=== PATIENT | male | born 2000 | race Caucasian/White ===

== ENCOUNTER 2022-05-14 10:12 | Emergency (ER) | payer BC, SELFPAY ==
[2022-05-14 11:20] VITALS: BP 109/76; PULSE 78; RESP 18; TEMP 36.6; O2SAT 99; BMI 19.5
[2022-05-14 11:37] LABS: UTC Strep Screen (Rapid) Negative (Negative)
--- NOTE | 2022-05-14 11:37 | EXP.UTC ---
Discharge Plan Referrals Follow up/Referrals: Provider,Referral, MD [Primary Care Provider] - See instructions Activity Restrictions/Add. Instructions Additional Instructions/Restrictions: covid/flu swab was sent to lab, call later today for results. self isolate until test results are known to be negative No sign of a bacterial infection. Likely viral. Viruses can take 7-14 days to run their course. Nasal saline and bulb syringe or nose Angela to remove nasal drainage to help with nasal congestion. Hard to eat, drink, sleep with nasal congestion so important to keep this cleaned out. Monitor temp. Tylenol or Motrin as needed for pain or fever Encourage fluids, water, Gatorade, Powerade, Pedialyte if /toddler/child Warm salt water gargles Warm fluids Sore throat lozenges Sleep elevated Humidifier/vaporizer Follow-up immediately for new or worsening symptoms or no noticeable improvement over the next 48-72 hours. Clinical Impressions Clinical Impression: Upper respiratory infection, viral Instructions Patient Instructions: DI for Viral Upper Respiratory Infection -- Adult Discharge ED [facility] General Stated complaint: sore throat Time Seen by Provider: 05/14/22 11:37 HEENT Symptoms (Recalled from RN notes): Yes History of Present Illness Provider Complaint: 21 yr old male presents for sore throat [facility] Disclaimer: The information contained in this section may have been updated after the patient was seen, as this information can be updated by other users. Social History , [employer]) Smoking Status: Never smoker alcohol intake: never current occupational status: employed Travel in the last 8 weeks: None ROS Obtained: Yes All systems reviewed & no additional complaints except as documented Constitutional Constitutional: Reports system reviewed and no additional complaints, except as documented and Reports as per HPI Eyes Eyes: Reports system reviewed and no additional complaints, except as documented and Reports as per HPI ENT Ears, Nose, Mouth, and Throat: Reports system reviewed and no additional complaints, except as documented, Reports as per HPI and Reports sore throat Cardiovascular Cardiovascular: Reports system reviewed and no additional complaints, except as documented Respiratory Respiratory: Reports system reviewed and no additional complaints, except as documented Gastrointestinal Gastrointestingal: Reports system reviewed and no additional complaints, except as documented Musculoskeletal Musculoskeletal: Reports system reviewed and no additional complaints, except as documented Integumentary/Breasts Skin/Breast: Reports system reviewed and no additional complaints, except as documented Neurologic Neurologic: Reports system reviewed and no additional complaints, except as documented Endocrine Endocrine: Reports system reviewed and no additional complaints, except as documented Hematologic/Lymphatic Henatologic/Lymphatic: Reports system reviewed and no additional complaints, except as documented Allergic/Immunologic Allergic/Immunologic: Reports system reviewed and no additional complaints, except as documented Physical Exam General General appearance: alert and in no apparent distress Head Head exam: atraumatic, normocephalic and normal inspection Eye Eye exam: Present normal appearance and PERRL ENT ENT exam: Present mucous membranes moist, TM's normal bilaterally and normal external ear exam Expanded ENT Exam Comment: pharynx red Neck Neck exam: Present normal inspection, full ROM and trachea midline; Absent meningismus or lymphadenopathy Respiratory Respiratory exam: Present normal lung sounds bilaterally; Absent respiratory distress Cardiovascular Cardiovascular exam: Present regular rate and normal rhythm; Absent JVD Extremities Exam Extremities exam: Present normal inspection, full ROM and normal cap
[2022-05-14 11:46] VITALS: BP 109/76; PULSE 78; RESP 18; TEMP 36.6; O2SAT 99
== END 2022-05-14 11:47 | disposition home or self-care (01) ==
PROVIDERS: Emergency Provider Nurse Practitioner Family
DX: J06.9 Acute upper respiratory infection, unspecified (principal)
CPT/HCPCS: 87880; 99212; G0463

== ENCOUNTER 2023-02-22 18:17 | Emergency (ER) | payer BC, SELFPAY ==
[2023-02-22 18:19] VITALS: BP 106/67; PULSE 63; RESP 18; TEMP 36.8; O2SAT 99; BMI 20.2
--- NOTE | 2023-02-22 18:52 | CT_ITS ---
PROCEDURE INFORMATION: Exam: CT Head Without Contrast Exam date and time: 02/22/2023 7:30 PM Age: 22 years old Clinical indication: Pain; Headache; Additional info: Cough induced severe BROWN TECHNIQUE: Imaging protocol: Computed tomography of the head without contrast. Radiation optimization: All CT scans at this facility use at least one of these dose optimization techniques: automated exposure control; mA and/or kV adjustment per patient size (includes targeted exams where dose is matched to clinical indication); or iterative reconstruction. REPORTING DATA: Count of CT and Cardiac NM exams in prior 12 months: This patient has received 0 known CTs and 0 known cardiac nuclear medicine studies in the 12 months prior to the current study. COMPARISON: No relevant prior studies available. FINDINGS: Brain: Normal. No hemorrhage. Unremarkable white matter. No mass effect. Cerebral ventricles: No ventriculomegaly. Paranasal sinuses: Bilateral maxillary sinus mucous retention cysts. Mastoid air cells: Visualized mastoid air cells are well aerated. Bones/joints: Unremarkable. No acute fracture. Soft tissues: Unremarkable. IMPRESSION: No acute intracranial findings.
--- NOTE | 2023-02-22 18:52 | CT_ITS ---
PROCEDURE INFORMATION: Exam: CT Cervical Spine Without Contrast Exam date and time: 02/22/2023 7:35 PM Age: 22 years old Clinical indication: Neck pain; Additional info: Cough, severe BROWN, limited rom TECHNIQUE: Imaging protocol: Computed tomography of the cervical spine without contrast. Radiation optimization: All CT scans at this facility use at least one of these dose optimization techniques: automated exposure control; mA and/or kV adjustment per patient size (includes targeted exams where dose is matched to clinical indication); or iterative reconstruction. REPORTING DATA: Count of CT and Cardiac NM exams in prior 12 months: This patient has received 0 known CTs and 0 known cardiac nuclear medicine studies in the 12 months prior to the current study. COMPARISON: CT HEAD/BRAIN WO CON 02/22/2023 7:30 PM FINDINGS: Bones/joints: Cervical vertebrae normal in height. Right lateral tilt. Mild reversal of normal cervical lordosis centered C3-C4. Maintained craniocervical junction. Preserved intervertebral disc heights. No significant neural foraminal narrowing or spinal canal stenosis. Lungs: Lung apices are normal. Soft tissues: Unremarkable. IMPRESSION: No acute osseous findings.
--- NOTE | 2023-02-22 18:54 | HMH.EDGENADL ---
Discharge Plan Disposition Patient Disposition: Eloped Chief Complaint: Back Pain/Injury Prescriptions Prescriptions: No Action multivitamin Tablet 1 tab PO DAILY ondansetron HCl 4 mg tablet 4 mg PO Q8H PRN (Reason: nausea and vomiting) Qty: 14 0RF loperamide 2 mg capsule 2 mg PO Q6H PRN (Reason: loose stool) Qty: 7 0RF Referrals Follow up/Referrals: Provider,Referral, MD [Primary Care Provider] - See instructions Clinical Impressions Clinical Impression: Neck pain Instructions Patient Instructions: DI for Low Back Pain Discharge ED Provider: Saturnino Hunt General Adult HPI General Chief complaint: Back Pain/Injury Stated complaint: nesk pain Time Seen by Provider: 02/22/23 18:41 Mode of Arrival: Ambulatory Source of Information: Patient Limitations: No Limitations Description of Symptoms (Recalled from ER Triage Doc. by RN): PT WITH C/O PAIN IN SPINE AND NECK PAIN. PT SITTING LAST NIGHT PLAYING A VIDEO GAME, COUGHED AND HAS PAIN SINCE History of Present Illness HPI narrative: Patient is a 22-year-old male who presents emergency department for evaluation of neck pain and headache. Patient states that he had a brief episode of coughing last night that caused severe bilateral and midline cervical neck pain radiating up into his head with associated headache. No extremity complaints, no lower back complaints. Patient has had limited range of motion in his neck since coughing and he is concerned causing him to present here for continued evaluation. Related Data Home Medications Medication Instructions Recorded Confirmed multivitamin 1 tab PO DAILY 07/31/22 09/27/22 Previous Rx's Medication Instructions Recorded loperamide 2 mg capsule 2 mg PO Q6H PRN loose stool #7 caps 09/27/22 ondansetron HCl 4 mg tablet 4 mg PO Q8H PRN nausea and 09/27/22 vomiting #14 tabs Allergies Allergy/AdvReac Type Severity Reaction Status Date / Time No Known Allergies Allergy Verified 09/27/22 15:33 [facility] Disclaimer: The information contained in this section may have been updated after the patient was seen, as this information can be updated by other users. Medical History (Updated 02/22/23 @ 21:01 by Flora Arellano RN) Upper respiratory infection, viral Social History Smoking Status: Current every day smoker alcohol intake: never current occupational status: employed Travel in the last 8 weeks: None ROS Obtained: Yes Systems reviewed as appropriate & no additional complaints except as documented Physical Exam General General appearance: alert and in no apparent distress Head Head exam: atraumatic and normocephalic Eye Eye exam: Present PERRL and EOMI ENT ENT exam: Present mucous membranes moist Neck Neck exam: Present normal inspection; Absent full ROM (Limited range of motion in all directions secondary to pain. Midline tenderness and bilateral paraspinal tenderness.) Chest Chest inspection: Present normal inspection and symmetric chest wall rise Respiratory Respiratory exam: Present normal lung sounds bilaterally; Absent respiratory distress Cardiovascular Cardiovascular exam: Present regular rate and normal rhythm Abdominal Exam Abdominal exam: Present soft Extremities Exam Extremities exam: Present normal inspection Neurological Exam Neurological exam: Present alert and CN II-XII intact; Absent motor sensory deficit Psychiatric Psychiatric exam: Present normal affect Skin Skin exam: Present warm and dry Medical Decision Making Conner Inquiry Pt receiving controlled substance: No Vital Signs: 02/22/23 18:19 02/22/23 19:00 02/22/23 21:00 Temperature 98.3 F 97.7 F Temperature Source Oral Oral Pulse Rate 67 65 Pulse Rate [Radial] 63 Respiratory Rate 18 16 Blood Pressure 113/59 L 130/70 Blood Pressure [Left Arm] 106/67 L Blood Pressure Mean [Left Arm] 80 Blood Pressure Sourc
--- NOTE | 2023-02-22 18:56 | XR_ITS ---
PROCEDURE INFORMATION: Exam: XR Chest Exam date and time: 02/22/2023 7:54 PM Age: 22 years old Clinical indication: Cough; Additional info: Cough, neck pain TECHNIQUE: Imaging protocol: Radiologic exam of the chest. Views: 1 view. COMPARISON: CT CERVICAL SPINE WO CON 02/22/2023 7:35 PM FINDINGS: Lungs: Hazy left midlung opacity. Lungs are otherwise clear. Pleural spaces: No pleural effusion. No pneumothorax. Heart/Mediastinum: Cardiomediastinal silhouette is normal. Bones/joints: No acute abnormality. IMPRESSION: Hazy left midlung opacity suggesting infectious/inflammatory process.
[2023-02-22 19:00] VITALS: BP 113/59; PULSE 67; O2SAT 96
--- NOTE | 2023-02-22 19:19 | PC.NURSE ---
PT REFUSED IV DR ESTRADA AWARE ORDERS CHANGED TO WITHOUT CONTRAST RADIOLOGY AWARE
--- NOTE | 2023-02-22 19:21 | PC.NURSE ---
Pt refuses IV for contrast, CT will be performed without contrast and PO meds.
--- NOTE | 2023-02-22 20:57 | PC.NURSE ---
PT WALKED OUT OF ER DID NOT TELL ANYONE HE WAS LEAVING , PT DID NOT HAVE AN IV
[2023-02-22 21:00] VITALS: BP 130/70; PULSE 65; RESP 16; TEMP 36.5; O2SAT 98
== END 2023-02-22 21:01 | disposition left against medical advice (07) ==
LOC: ER 18:29
PROVIDERS: Emergency Provider Emergency Medicine
DX: R51.9 Headache, unspecified (principal); M54.2 Cervicalgia; F17.200 Nicotine dependence, unspecified, uncomplicated
CPT/HCPCS: 70450; 71045; 72125; 96374; 99285

== ENCOUNTER 2023-07-19 11:16 | Emergency (ER) | payer BC, SELFPAY ==
[2023-07-19 11:17] VITALS: BP 117/63; PULSE 80; RESP 18; TEMP 36.7; O2SAT 99; BMI 20.3
[2023-07-19 11:37] VITALS: BMI 20.3
--- NOTE | 2023-07-19 11:44 | ED_ITS ---
Discharge Plan Disposition Patient Disposition: Home, Self-Care Condition: Good Prescriptions Prescriptions: New ibuprofen [IBU] 800 mg tablet 800 mg PO Q8HP PRN (Reason: Moderate Pain) Qty: 30 0RF uoiibrfzqafocvl-tcfzurfet-MA [Bromfed DM] 2-30-10 mg/5 mL Syrup 5 ml PO Q6H PRN (Reason: Cough) Qty: 240 0RF ondansetron 4 mg Tablet,Disintegrating 4 mg PO Q8H PRN (Reason: Nausea) Qty: 12 0RF No Action loperamide 2 mg capsule 2 mg PO Q6H PRN (Reason: loose stool) Qty: 14 0RF Referrals Follow up/Referrals: Cyndee Damian APRN [Primary Care Provider] - See instructions Activity Restrictions/Add. Instructions Additional Instructions/Restrictions: Drink plenty of fluids. Take tylenol or ibuprofen for pain or fever. Take the medications as directed. Follow up with your regular doctor. GO TO THE ER FOR ANY WORSENING SYMPTOMS Clinical Impressions Clinical Impression: Acute viral syndrome Stand Alone Forms Stand Alone Forms: Work/School Release Instructions Patient Instructions: DI for Viral Syndrome, Ondansetron, Ibuprofen Discharge ED Provider: Tariq Minaya [facility] General Stated complaint: runny nose, cough, needs covid test for work Mode of Arrival: Ambulatory Source of Information: Patient Limitations: No Limitations Time Seen by Provider: 07/19/23 11:43 Description of Symptoms (Recalled from Triage Doc. by RN): Pt's symptoms are sore throat, chill, body aches, and chills. HEENT Symptoms (Recalled from RN notes): Yes Resp Symptoms (Recalled from RN notes): No Skin Symptoms (Recalled from RN notes): No MS Symptoms (Recalled from RN notes): No Functional Status (Recalled from RN notes): n/a History of Present Illness Provider Complaint: He states that for the past 2 days he has had fever, chills, body aches, malaise, dry cough, and nausea. Related Data Previous Rx's Medication Instructions Recorded loperamide 2 mg capsule 2 mg PO Q6H PRN loose stool #14 05/08/23 caps edoavtsnagrulay-mxusyktnbpppemn-YQ 5 ml PO Q6H PRN Cough #240 mL 02/15/24 2 mg-30 mg-10 mg/5 mL oral syrup (Bromfed DM) ibuprofen 800 mg tablet (IBU) 800 mg PO Q8HP PRN Moderate Pain 07/19/23 #30 tabs ondansetron 4 mg disintegrating 4 mg PO Q8H PRN Nausea #12 tabs 07/19/23 tablet Allergies Allergy/AdvReac Type Severity Reaction Status Date / Time No Known Allergies Allergy Verified 07/19/23 11:40 Worker's Comp Is this a Worker's Comp case?: No [facility] Disclaimer: The information contained in this section may have been updated after the patient was seen, as this information can be updated by other users. Medical History Upper respiratory infection, viral Surgical History No significant past surgical history Family History Mother Cancer Hypertension Grandfather Cancer Other No significant family history Social History Smoking Status: Former smoker alcohol intake: former substance use type: former substance user and marijuana current occupational status: employed Travel in the last 8 weeks: None adopted: No caregiver/support person: No foster care: No lives independently: Yes marital status: life partner ROS Obtained: Yes All systems reviewed & no additional complaints except as documented Constitutional Constitutional: Reports chills and Reports fever(s) Eyes Eyes: Denies eye discharge ENT Ears, Nose, Mouth, and Throat: Reports as per HPI Cardiovascular Cardiovascular: Denies chest pain Respiratory Respiratory: Denies chest congestion and Reports cough Gastrointestinal Gastrointestingal: Reports nausea; Denies abdominal pain, constipation, cramping, diarrhea or vomiting Musculoskeletal Musculoskeletal: Denies arthralgias Integumentary/Breasts Skin/Breast: Denies rash Neurologic Neurologic: Denies paresthesias Physical Exam General General appearance: alert and in no apparent distress Eye Eye exam: Present normal appearance, PERRL and EOMI ENT ENT exam: Present mucous membranes moist and normal external ear exam Expanded ENT Exam External ear exam: Present normal external inspection TM/Canal exam: Bilateral TM: erythema and bulging Nose exam: Absent sinus tenderness Nasal speculum exam: Bilateral: normal Mouth exam: Present normal external inspection; Absent drooling Teeth exam: Present normal inspection Throat exam: Present tonsillar erythema and tonsillomegaly Neck Neck exam: Present normal inspection, full ROM and trachea midline; Absent tenderness, lymphadenopathy or thyromegaly Chest Chest inspection: Present normal inspection and symmetric chest wall rise; Absent tenderness or rash Respiratory Respiratory exam: Present normal lung sounds bilaterally; Absent respiratory distress, wheezes, stridor or accessory muscle use Cardiovascular Cardiovascular exam: Present regular rate, normal rhythm and normal heart sounds Abdominal Exam Abdominal exam: Present soft; Absent distention, tenderness, guarding, rebound or rigidity Extremities Exam Extremities exam: Present normal inspection, full ROM and normal capillary refill; Absent tenderness or calf tenderness Back Exam Back exam: Present normal inspection and full ROM; Absent tenderness Neurological Exam Neurological exam: Present alert and oriented X3 Psychiatric Psychiatric exam: Present normal affect and normal mood Skin Skin exam: Present warm, dry, intact and normal color Lymphatic Lymphatic Findings: no adenopathy Medical Decision Making Medical Records Medical records reviewed: No I reviewed the patient's medical records. Conner Inquiry Pt receiving controlled substance: No Vital Signs: 07/19/23 11:17 Temperature 98.1 F Temperature Source Oral Pulse Rate [Right Radial] 80 Respiratory Rate 18 Blood Pressure [Right Arm] 117/63 Blood Pressure Mean [Right Arm] 81 Blood Pressure Source [Right Arm] Automatic Cuff Blood Pressure Position [Right Arm] Sitting 02 Sat by Pulse Oximetry 99 Oxygen Delivery Method Room Air Lab Data Lab results reviewed: Yes I reviewed the patient's lab results. Orders (Tests/Meds): ORDERS Category Date Time Status Rapid PCR Covid and Flu A/B Stat Lab 07/19/23 11:37 Ordered
[2023-07-19 11:51] LABS: Coronavirus 19, PCR Not Detected (NotDetected); Influenza A, PCR Not Detected (NotDetected); Influenza B, PCR Not Detected (NotDetected)
[2023-07-19 11:55] LABS: UTC Strep Screen (Rapid) Negative (Negative)
[2023-07-19 11:56] LABS: UTC Influenza A Antigen Negative (Negative); UTC Influenza B Antigen Negative (Negative)
[2023-07-19 12:11] VITALS: BP 117/63; PULSE 80; RESP 18; TEMP 36.7; O2SAT 99
== END 2023-07-19 12:12 | disposition home or self-care (01) ==
PROVIDERS: Emergency Provider Nurse Practitioner Family; PCP Nurse Practitioner Family
DX: R05.9 Cough, unspecified (principal); R11.0 Nausea; R50.9 Fever, unspecified; R53.81 Other malaise
CPT/HCPCS: 87636; 87804; 87880; 99212; 99214; G0463

== ENCOUNTER 2023-07-27 14:20 | Outpatient (CLI) | payer BC, SELFPAY ==
[2023-07-27 15:00] LABS: Basophils % 0.5 % (0.1-2.0); Eosinophils # 0.2 K/mm3 (0.0-0.4); Eosinophils % 2.3 % (0.1-12.0); Hematocrit 45.8 % (42.0-52.0); Hemoglobin 15.6 g/dL (14.1-18.0); Lymphocytes # 1.7 K/mm3 (0.7-4.5); Lymphocytes % 26.5 % (10-50); Mean Corpuscular HGB Conc 34.1 g/dL (31.8-35.4); Mean Corpuscular Volume 90.8 fl (80-94); Mean Platelet Volume 8.8 fl (7.4-10.4); Monocytes # 0.5 K/mm3 (0.1-1.0); Monocytes % 8.2 % (1.7-9.3); Neutrophils % 62.5 % (37.0-80.0); Platelet Count 368 K/mm3 (142-424); Red Blood Count 5.05 M/mm3 (4.60-6.20); Red Cell Distribution Width 12.8 % (11.5-17.5); White Blood Count 6.4 K/mm3 (4.8-10.8)
[2023-07-27 16:11] LABS: Alanine Aminotransferase 15 U/L (12-78); Albumin Level 4.8 g/dl (3.5-5.0); Albumin/Globulin Ratio 1.9 (1.1-1.8); Alkaline Phosphatase 64 U/L (38-126); Anion Gap 10.7 mEq/L (5-15); Aspartate Amino Transferase 24 U/L (17-59); Bilirubin,Total 0.4 mg/dl (0.2-1.3); Blood Urea Nitrogen 12 mg/dl (9-20); Calcium 9.7 mg/dl (8.4-10.2); Carbon Dioxide 29 mmol/L (22.0-30.0); Chloride 106 mmol/L (98-107); Estimated Glomerular Filt Rate 119 ml/min (>60); GFR (African American) 144 ML/MIN (>60); Globulin 2.5 g/dL (1.3-3.2); Glucose 76 mg/dl (74-100); Potassium 4.7 mmoL/L (3.5-5.1); Sodium 141 mmol/L (136-145); Total Protein,Serum 7.3 g/dl (6.3-8.2)
[2023-07-27 16:42] LABS: Thyroid Stimulating Hormone 1.12 uIU/mL (0.465-4.68)
[2023-07-28 16:35] LABS: Deamidated Gliadin Abs, IgA 10 units (0-19); Deamidated Gliadin Abs, IgG 6 units (0-19); Tissue Transglutaminase IgA Ab <2 U/mL (0-3); Tissue Transglutaminase IgG Ab 5 U/mL (0-5)
[2023-07-30 14:10] LABS: Endomysial IgA Antibody Negative (Negative)
[2023-08-01 08:24] LABS: Reticulin IgA Antibody Negative titer (Neg:<1:2.5)
== END 2023-07-27 23:59 ==
LOC: LAB.DROPOF 14:21
PROVIDERS: Nurse Practitioner; PCP Nurse Practitioner Family; Visit Provider Nurse Practitioner Family
DX: R10.9 Unspecified abdominal pain (principal); R19.5 Other fecal abnormalities; R30.0 Dysuria; N50.812 Left testicular pain; N50.89 Other specified disorders of the male genital organs; Z13.21 Encounter for screening for nutritional disorder; Z13.29 Encounter for screening for other suspected endocrine disorder
CPT/HCPCS: 36415; 80053; 80323; 82306; 83516; 84443; 85025; 86255; 86256; 87086

== ENCOUNTER 2023-09-19 14:54 | Outpatient (CLI) | payer BC, SELFPAY | END 2023-09-19 23:59 | LOC: LAB.DROPOF 09-20 14:55 | PROVIDERS: PCP Nurse Practitioner Family; Visit Provider Nurse Practitioner Family | DX: R05.8 Other specified cough (principal); R09.81 Nasal congestion | CPT/HCPCS: 87070 ==

== ENCOUNTER 2023-10-20 09:15 | Emergency (ER) | payer BC, SELFPAY ==
[2023-10-20 09:20] VITALS: BP 112/60; PULSE 60; RESP 18; TEMP 36.7; O2SAT 100; BMI 19.8
--- NOTE | 2023-10-20 09:40 | ED_ITS ---
Discharge Plan Disposition Patient Disposition: Home, Self-Care Condition: Good Prescriptions Prescriptions: New triamcinolone acetonide 0.1 % cream 1 applic topical BID PRN (Reason: itching) Qty: 30 0RF methylprednisolone 4 mg Tablets,Dose Pack 4 mg PO DIRECTED 6 Days Qty: 21 0RF Rx Instructions: Take 1 pack as directed for 6 days No Action cetirizine 10 mg tablet 10 mg PO DAILY Qty: 30 3RF triamcinolone acetonide 0.1 % ointment 1 applic topical BID Qty: 15 0RF Referrals Follow up/Referrals: Silvina Delgado APRN [Primary Care Provider] - See instructions Activity Restrictions/Add. Instructions Additional Instructions/Restrictions: Try to identify and avoid contact with the offending substance (poison cailin). Don't start the oral steroids until tomorrow. Don't put the topical steroids (triamcinolone) on your face or your groin. Follow up with your regular doctor. GO TO THE ER FOR ANY WORSENING SYMPTOMS OR CONCERNS Clinical Impressions Clinical Impression: Poison cailin dermatitis Instructions Patient Instructions: DI for Poison Cailin Allergy, Dexamethasone Injection Discharge ED Provider: Tariq Minaya [facility] General Stated complaint: itching rash left arm/leg, right wrist Mode of Arrival: Ambulatory Source of Information: Patient Limitations: No Limitations Time Seen by Provider: 10/20/23 09:39 HEENT Symptoms (Recalled from RN notes): Yes Resp Symptoms (Recalled from RN notes): No Skin Symptoms (Recalled from RN notes): No MS Symptoms (Recalled from RN notes): No Functional Status (Recalled from RN notes): n/a History of Present Illness Provider Complaint: He states that for the past 3 days he has had poison cailin rash on his groin, thighs, and hands. Related Data Previous Rx's Medication Instructions Recorded cetirizine 10 mg tablet 10 mg PO DAILY #30 tabs 10/09/23 triamcinolone acetonide 0.1 % 1 applic topical BID #15 grams 10/09/23 topical ointment methylprednisolone 4 mg tablets in 4 mg PO DIRECTED 6 days #21 tabs 10/20/23 a dose pack triamcinolone acetonide 0.1 % 1 applic topical BID PRN itching 10/20/23 topical cream #30 grams Allergies Allergy/AdvReac Type Severity Reaction Status Date / Time No Known Allergies Allergy Verified 10/20/23 09:36 Worker's Comp Is this a Worker's Comp case?: No [facility] Disclaimer: The information contained in this section may have been updated after the patient was seen, as this information can be updated by other users. Medical History Tobacco use Acute viral syndrome Cardiomegaly Encounter for vitamin deficiency screening Testicular pain, left Screening for thyroid disorder Testicular lump Neck pain Sinusitis Abdominal cramping Loose stools Dysuria Upper respiratory infection, viral Surgical History No significant past surgical history Family History Mother Cancer Hypertension Grandfather Cancer Other No significant family history Social History Smoking Status: Former smoker alcohol intake: former substance use type: former substance user and marijuana current occupational status: employed Travel in the last 8 weeks: None adopted: No caregiver/support person: Yes foster care: No household members: significant other, family, children and friend(s) housing: house lives independently: Yes marital status: life partner number of children: 2 working smoke detector in home: 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 ROS Obtained: Yes All systems reviewed & no additional complaints except as documented Constitutional Constitutional: Denies chills and Denies fever(s) Eyes Eyes: Denies eye discharge ENT Ears, Nose, Mouth, and Throat: Denies dizziness, Denies otalgia and Denies sore throat Cardiovascular Cardiovascular: Denies chest pain Respiratory Respiratory: Denies shortness of breath, Denies chest congestion, Denies cough, Denies stridor and Denies wheezing Gastrointestinal Gastrointestingal: Denies nausea or vomiting Musculoskeletal Musculoskeletal: Reports system reviewed and no additional complaints, except as documented and Denies arthralgias Integumentary/Breasts Skin/Breast: Reports as per HPI and Reports rash Neurologic Neurologic: Denies dizziness and Denies paresthesias Allergic/Immunologic Allergic/Immunologic: Denies wheezing Physical Exam General General appearance: alert and in no apparent distress Head Head exam: atraumatic, normocephalic and normal inspection Eye Eye exam: Present normal appearance, PERRL and EOMI ENT ENT exam: Present normal exam, normal oropharynx, mucous membranes moist, TM's normal bilaterally and normal external ear exam Neck Neck exam: Present normal inspection, full ROM and trachea midline; Absent meningismus or lymphadenopathy Chest Chest inspection: Present normal inspection and symmetric chest wall rise; Absent tenderness Respiratory Respiratory exam: Present normal lung sounds bilaterally; Absent respiratory distress Cardiovascular Cardiovascular exam: Present regular rate and normal rhythm; Absent JVD Abdominal Exam Abdominal exam: Present soft and normal bowel sounds; Absent distention, tenderness or guarding Extremities Exam Extremities exam: Present normal inspection, full ROM and normal capillary refill; Absent calf tenderness Back Exam Back exam: Present normal inspection; Absent tenderness Neurological Exam Neurological exam: Present alert and oriented X3 Psychiatric Psychiatric exam: Present normal affect and normal mood Skin Skin exam: Present rash Lymphatic Lymphatic Findings: no adenopathy Medical Decision Making Medical Records Medical records reviewed: No I reviewed the patient's medical records. Conner Inquiry Pt receiving controlled substance: No Vital Signs: 10/20/23 09:20 Temperature 98.0 F Temperature Source Oral Pulse Rate [Right Radial] 60 Respiratory Rate 18 Blood Pressure [Right Arm] 112/60 Blood Pressure Mean [Right Arm] 77 Blood Pressure Source [Right Arm] Automatic Cuff Blood Pressure Position [Right Arm] Sitting 02 Sat by Pulse Oximetry 100 Oxygen Delivery Method Room Air
[2023-10-20] MEDS: DEXAMETHASONE 4MG/ML 1ML VIAL 8 MG IM (10:14)
[2023-10-20 10:43] VITALS: BP 112/60; PULSE 60; RESP 18; TEMP 36.7; O2SAT 100
== END 2023-10-20 10:43 | disposition home or self-care (01) ==
PROVIDERS: Emergency Provider Nurse Practitioner Family; PCP Nurse Practitioner
DX: L23.7 Allergic contact dermatitis due to plants, except food (principal); W60.XXXA Contact with nonvenomous plant thorns and spines and sharp leaves, initial encounter
CPT/HCPCS: 96372; 99212; 99214; G0463